=== PATIENT | female | born 2000 | race Caucasian/White ===

== ENCOUNTER 2018-09-29 10:29 | Day surgery (SDC) | payer BC ==
[2018-09-25 11:26] VITALS: BMI 30.5
[2018-09-29 12:50] VITALS: TEMP 98.4
[2018-09-29 13:18] VITALS: BP 100/59; PULSE 77
--- NOTE | 2018-10-01 17:25 | PATH ---
Surgical Pathology Report Patient Name: EVELYNE MA [facility]. Rec. #: [id number] /Age/Gender: 2000 (Age: 18) / F Account: [id number] Location: [facility] Taken: 09/29/2018 Received: 09/29/2018 Reported: 10/01/2018 Physicians: Alexander Rubio M.D. Specimen(s) Received A: SECOND PORTION DUODENUM B: GASTRIC ANTRUM Clinical History Peptic ulcer disease, history of giardia Postoperative diagnosis: Mild gastritis, gastric antral erosions Final Diagnosis A. DUODENUM, SECOND PORTION, BIOPSY: DUODENAL MUCOSA WITHOUT SIGNIFICANT PATHOLOGIC FINDINGS. B. GASTRIC ANTRUM, BIOPSY: GASTRIC ANTRAL MUCOSA WITH MILD CHRONIC GASTRITIS. IMMUNOHISTOCHEMICAL STAIN FOR H. PYLORI IS NEGATIVE. Electronically Signed Harini Zamora M.D. Gross Description A. Received in formalin, labeled "biopsy second portion of duodenum" are 3 payan, irregular portions of soft tissue ranging from 0.4-0.6 cm. in greatest dimension. The specimens are submitted in toto in one cassette. B. Received in formalin, labeled "biopsy gastric antrum" are 2 payan, irregular portions of soft tissue measuring 0.3 and 0.4 cm. in greatest dimension. The specimens are submitted in toto in one cassette. 09/30/2018 [facility]09/30/2018
== END 2018-09-29 13:10 | disposition home or self-care (01) ==
LOC: FASU-ENDO 10:29
PROVIDERS: ATTEND Internal Medicine Gastroenterology
PROC: 0DB98ZX Excision of Duodenum, Via Natural or Artificial Opening Endoscopic, Diagnostic (ICD-10-PCS; principal; 2018-09-29 12:20)
PROC: 0DB68ZX Excision of Stomach, Via Natural or Artificial Opening Endoscopic, Diagnostic (ICD-10-PCS; 2018-09-29 12:20)
DX: K29.50 Unspecified chronic gastritis without bleeding (principal); R10.13 Epigastric pain; R11.0 Nausea
CPT/HCPCS: 84703; 88305-TC; 88342-TC